=== PATIENT | male | born 1965 | race Caucasian/White ===

== ENCOUNTER 2016-09-18 20:41 | Inpatient (IN) | payer MEDICARE ==
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
[2016-09-18] MEDS ORDERED: SODIUM CHLORIDE 0.9% 1,000 ML IV STA (22:00)
[2016-09-18] MEDS ORDERED: SODIUM CHLORIDE 0.9% 500 ML IV STA (22:00)
[2016-09-18] MEDS ORDERED: HYDROmorphone 1 MG/ML 1 ML SYRINGE IVP STA ×2 (22:01→23:33)
--- NOTE | 2016-09-18 22:26 | XR ---
EXAMINATION TYPE: XR chest 2V DATE OF EXAM: 09/18/2016 10:15 PM COMPARISON: NONE HISTORY: Difficulty breathing. Cough and congestion TECHNIQUE: Frontal and lateral views of the chest are obtained. FINDINGS: Heart and mediastinum are normal. There is coarse interstitial density in both lungs. I se e no pleural effusion. There are no hilar masses. IMPRESSION: Coarse interstitial pulmonary density is nonspecific and could relate to fibrosis or int erstitial pneumonia. No gross heart failure.
[2016-09-18 22:40] LABS: Basophils % (A) 0 %; CH 30.4; CHCM 35.2; Eosinophils # (A) 0.2 k/uL (0-0.7); Eosinophils % (A) 3 %; HCT 40.9 % (39.0-53.0); HDW 3.17; HGB 13.5 gm/dL (13.0-17.5); Luc # (Auto) 0.08; Luc % (Auto) 1; Lymphocytes # (A) 0.9 k/uL (1.0-4.8); Lymphocytes % (A) 14 %; MCH 28.7 pg (25.0-35.0); MCHC 33.1 g/dL (31.0-37.0); MCV 86.9 fL (80.0-100.0); Mean Platelet Volume 8.2; Monocytes # (A) 0.2 k/uL (0-1.0); Monocytes % (A) 4 %; Neutrophils # (A) 4.8 k/uL (1.3-7.7); Neutrophils % (A) 78 %; RDW 13.7 % (11.5-15.5); WBC 6.2 k/uL (3.8-10.6); WBC (Perox) 6.07
[2016-09-18 22:50] LABS: ALT 35 U/L (21-72); AST 20 U/L (17-59); Alkaline Phosphatase 109 U/L (38-126); Anion Gap 11 mmol/L; Blood Urea Nitrogen 10 mg/dL (9-20); Calcium 9.3 mg/dL (8.4-10.2); Carbon Dioxide 26 mmol/L (22-30); Chloride 106 mmol/L (98-107); Glucose 238 mg/dL (74-99); Non-African American GFR(MDRD) >60 (>60 ml/min/1.73 sqM); Potassium 4.1 mmol/L (3.5-5.1); Sodium 143 mmol/L (137-145); Total Bilirubin 0.9 mg/dL (0.2-1.3); Total Protein 6.4 g/dL (6.3-8.2)
[2016-09-18] MEDS ORDERED: LEVOFLOXACIN 500MG-D5W PMX 500 MG in DEXTROSE/WATER 1 100ML.BAG IVPB STA (23:33)
[2016-09-18] MEDS ORDERED: ACETAMINOPHEN TAB 325 MG TAB PO PRN (23:36)
[2016-09-18] MEDS ORDERED: NALOXONE 0.4 MG/ML 1 ML VIAL IV PRN (23:36)
[2016-09-19 00:42] VITALS: BMI 34.5
[2016-09-19] MEDS: SODIUM CHLORIDE 0.9% 1,000 ML IV SCH (01:57)
[2016-09-19] MEDS: HYDROmorphone 1 MG/ML 1 ML SYRINGE IV PRN ×7 (03:13→22:01)
[2016-09-19 07:11] LABS: Glucose,Whole Blood 133 mg/dL (75-99)
[2016-09-19] MEDS ORDERED: glipiZIDE 10 MG TAB PO SCH (07:30)
[2016-09-19] MEDS: metFORMIN 500 MG TAB PO SCH ×2 (07:37→17:25)
[2016-09-19] MEDS: FAMOTIDINE 20 MG TAB PO SCH ×2 (07:37→21:05)
[2016-09-19] MEDS: INSULIN LISPRO (humaLOG) 300 UNIT/3 ML VIAL SQ SCH ×4 (08:03→21:06)
[2016-09-19 11:20] LABS: Glucose,Whole Blood 103 mg/dL (75-99)
[2016-09-19 11:33] LABS: Hemoglobin A1C 7.2 % (4.2-6.1)
[2016-09-19] MEDS ORDERED: OSELTAMIVIR 75 MG CAP PO SCH (13:15)
[2016-09-19 16:04] LABS: Glucose,Whole Blood 122 mg/dL (75-99)
[2016-09-19] MEDS ORDERED: TEMAZEPAM 15 MG CAP PO PRN (17:10)
[2016-09-19] MEDS ORDERED: HYDROcodone/APAP 5-325MG 1 EACH TAB PO PRN (17:10)
[2016-09-19] MEDS ORDERED: ALPRAZolam 0.25 MG TAB PO PRN (17:10)
[2016-09-19] MEDS: glipiZIDE 10 MG TAB PO SCH (17:25)
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
[2016-09-19] MEDS ORDERED: RX INFO: IV CONTRAST WAS GIVEN 1 EACH MISC MISCELLANE PRN (18:08)
[2016-09-19 18:43] LABS: Appearance,Urine Clear (Clear); Bilirubin,Urine Negative (Negative); Glucose,Urine (UA) Negative (Negative); Ketones,Urine Negative (Negative); Leukocyte Esterase,Urine Negative (Negative); Nitrite,Urine Negative (Negative); PH, Urine 5.5 (5.0-8.0); Protein,Urine Negative (Negative); Specific Gravity,Urine 1.014 (1.001-1.035); UA Billing (MACRO vs. MICRO) CHEM; Urobilinogen,Urine <2.0 mg/dL (<2.0)
[2016-09-19] MEDS: LEVALBUTEROL NEB (CONC) 1.25 MG/0.5 ML AMP INHALATION SCH (19:07)
[2016-09-19] MEDS: SYMBICORT 160-4.5 MCG INHALER INHALATION SCH (19:07)
[2016-09-19] MEDS: IPRATROPIUM 0.5 MG/2.5 ML NEBU INHALATION SCH (19:07)
--- NOTE | 2016-09-19 19:45 | HP ---
DATE OF ADMISSION: 09/18/2016 DATE OF SERVICE: 09/19/2016 This 51-year-old gentleman who was admitted with diabetes mellitus, hyperlipidemia, history of back pain, DJD, history of MRSA, total knee arthroplasty, is being followed by no family physician in the outpatient setting recently. He came to [facility] from [place]. The patient is complaining of shortness of breath and cough and tiredness and weakness. Patient [facility] and was admitted for further evaluation. Bilateral pneumonia was suspected. Interstitial edema was also suspected. Apparently multiple of the family were also sick. The patient did not take a flu shot this year. PAST MEDICAL HISTORY: 1. History of diabetes mellitus. 2. Hyperlipidemia. 3. History of back pain. 4. History of MRSA. 5. History of total knee arthroplasty. 6. History of THC. HOME MEDICATIONS: 1. Oxycodone 30 mg q.4 p.r.n. 2. Metformin 1000 mg b.i.d. 3. Glucotrol XL 10 mg b.i.d. 4. Flomax 0.4 daily. 5. Phenergan 25 mg. 6. MS Contin 60 and 30 mg b.i.d. 7. Valium 10 mg t.i.d. 8. Cymbalta 60 mg p.o. daily. 9. Lipitor 40 mg at bedtime. ALLERGIES: NONE. FAMILY HISTORY: No history of heart disease or strokes in the family. SOCIAL HISTORY: History of alcohol, THC. No history of smoking. REVIEW OF SYSTEMS: ENT: No dimension vision. No diminished hearing. CARDIOVASCULAR: No angina, palpitations. RESPIRATORY SYSTEM: As mentioned earlier. GI: No nausea, vomiting. : No dysuria. NERVOUS SYSTEM: No numbness or weakness. ALLERGY/IMMUNOLOGY: No asthma, hayfever. MUSCULOSKELETAL: As mentioned earlier. HEMATOLOGY/ONCOLOGY: No history of anemia. ENDOCRINE: Diabetes. CONSTITUTIONAL: As mentioned earlier. DERMATOLOGY: Negative. PSYCHIATRY: As mentioned earlier. PHYSICAL EXAMINATION: Patient alert and oriented x3. Pulse 84, blood pressure 105/73, respiration 18, temperature 97.2, pulse ox 94% on 2 L. HEENT: Conjunctivae normal. Oral mucosa moist. NECK: No jugular venous distention. No carotid bruit. No lymph node enlargement. CARDIOVASCULAR SYSTEM: S1 normal. S2 normal. No S3. No S4. RESPIRATORY SYSTEM: Breath sounds diminished at the bases. Bilateral scattered rhonchi and expiratory wheezing and crackles. ABDOMEN: Soft, obese, nontender. No mass palpable. LEGS: No edema. No swelling. NERVOUS SYSTEM: Higher functions as mentioned earlier. Cranial nerves 2 through 12 grossly intact. Moves all 4 limbs. No focal motor or sensory deficit. LYMPHATICS: No lymph node palpable in neck, axillae or groin. SKIN: No ulcer, rash, bleeding. LABS: Accu-Cheks 238. WBC 6.2. Hemoglobin A1C 7.2. ASSESSMENT: 1. Acute bilateral pneumonia, possible interstitial pneumonia. 2. Possible acute influenza. 3. Reactive bronchospasm. 4. Diabetes mellitus, type 2. 5. Hyperlipidemia. 6. History of back pain. 7. History of nephrolithiasis. 8. History of methicillin-resistant Staphylococcus aureus. 9. History of left total knee arthroplasty. 10. History of degenerative joint disease. 11. History of tetrahydrocannabinol. 12. FULL CODE. 13. Obesity with a body mass index of 34.6. RECOMMENDATIONS AND DISCUSSION: In this 51-year-old gentleman who presented with multiple complex medical issues, we will monitor the patient closely, continue the current medications, continue with symptomatic treatment. Will initiate broad-spectrum IV antibiotics. Will also obtain cultures, including sputum culture. Would also recommend bronchodilator treatment, DVT prophylaxis. Resume the home medications. Monitor blood sugars closely. Hemoglobin A1c is slightly elevated. Will also get Dr. Erickson to consult. Will also initiate Tamiflu empirically and will check nasal swab for flu testing also. Overall prognosis is guarded because of multiple complex medical issues. Further recommendations to follow. I would also recommend that the patient follow up with a primary physician closely after discharge. WADE
[2016-09-19] MEDS ORDERED: ATORVASTATIN 10 MG TAB PO SCH (21:00)
[2016-09-19] MEDS: methylPREDNISolone SOD SUCCI 125 MG/2 ML VIAL IV SCH (21:03)
[2016-09-19] MEDS: DULoxetine HCL 60 MG CAPSULE.DR PO SCH (21:04)
[2016-09-19] MEDS: ATORVASTATIN 40 MG TAB PO SCH (21:05)
[2016-09-19] MEDS: HEPARIN SODIUM,PORCINE 5,000 UNIT/ML 1 ML VIAL SQ SCH (21:05)
[2016-09-19] MEDS: MORPHINE SULFATE ER 60 MG TABLET PO SCH (21:06)
[2016-09-19] MEDS: MORPHINE SULFATE ER 30 MG TABLET PO SCH (21:07)
[2016-09-19] MEDS: LEVOFLOXACIN 500MG-D5W PMX 500 MG in DEXTROSE/WATER 1 100ML.BAG IVPB SCH (21:08)
[2016-09-19] MEDS: DIAZEPAM 5 MG TAB PO SCH (21:08)
[2016-09-19] MEDS: SULFAMETHOX-TMP 800-160MG 1 EACH TAB PO SCH (21:08)
[2016-09-19 21:19] LABS: Glucose,Whole Blood 147 mg/dL (75-99)
--- NOTE | 2016-09-19 22:20 | CT ---
EXAMINATION TYPE: CT chest w con DATE OF EXAM: 09/19/2016 9:39 PM COMPARISON: 09/18/2016 chest radiograph HISTORY: Cough and dyspnea. ILD versus pneumonia. CT DLP: 489.00 mGycm Automated exposure control for dose reduction was used. CONTRAST: CT scan of the chest is performed with IV Contrast, patient injected with 100 mL of Omnipaque 300. FINDINGS: LUNGS: There is evidence of faint airspace opacities in the perihilar areas bilaterally and is suggestion of mild perihilar pulmonary edema. Underlying interstitial chronic disease changes cannot be excluded. Mild central bronchiectasis is noted. There is evidence of mild active infiltrates and atelectasis in both lung bases more on the left side . No pneumothorax is noted. MEDIASTINUM: Heart is not enlarged. There are multiple lymph nodes in the mediastinum and hilar areas. One of the largest lymph nodes mervin suring 1.6 x 1.9 cm in the subcarinal area. The right hilar lymph node measures 1.7 x 1.0 cm. Visualized main pulmonary arteries and central branches reveals no significant filling defect to repr esent acute pulmonary embolism. The ascending aorta measures 3.4 cm in greatest AP diameter without s ignificant aneurysm. OTHER: Cholecystectomy changes are noted. Visualized adrenal glands appear unremarkable. Mild degenerative changes are present in the thoracic spine. IMPRESSION: 1. Mild bibasilar active lung infiltrates more on the left side posteriorly. 2. Perihilar interstitial opacities bilaterally are probably related to pulmonary edema. However poss ibility of chronic interstitial lung disease changes cannot be excluded. Short-term progress studies may be helpful.
[2016-09-20] MEDS: methylPREDNISolone SOD SUCCI 125 MG/2 ML VIAL IV SCH ×5 (00:05→23:38)
[2016-09-20] MEDS: HYDROmorphone 1 MG/ML 1 ML SYRINGE IV PRN ×6 (01:16→21:29)
[2016-09-20] MEDS: SODIUM CHLORIDE 0.9% 1,000 ML IV SCH ×2 (03:24→20:10)
[2016-09-20 06:48] LABS: Glucose,Whole Blood 257 mg/dL (75-99)
[2016-09-20] MEDS: LEVALBUTEROL NEB (CONC) 1.25 MG/0.5 ML AMP INHALATION SCH ×4 (07:12→20:14)
[2016-09-20] MEDS: IPRATROPIUM 0.5 MG/2.5 ML NEBU INHALATION SCH ×4 (07:12→20:14)
[2016-09-20] MEDS: SYMBICORT 160-4.5 MCG INHALER INHALATION SCH ×2 (07:13→20:13)
[2016-09-20 07:51] LABS: Basophils % (A) 0 %; CH 29.6; Eosinophils % (A) 0 %; HCT 37.6 % (39.0-53.0); Luc # (Auto) 0.05; Luc % (Auto) 1; Lymphocytes # (A) 0.5 k/uL (1.0-4.8); Lymphocytes % (A) 10 %; MCH 28.7 pg (25.0-35.0); MCHC 31.9 g/dL (31.0-37.0); MCV 90.1 fL (80.0-100.0); Mean Platelet Volume 7.1; Monocytes # (A) 0.1 k/uL (0-1.0); Monocytes % (A) 1 %; Neutrophils % (A) 87 %; RBC 4.17 m/uL (4.30-5.90); RDW 13.6 % (11.5-15.5); WBC 4.6 k/uL (3.8-10.6); WBC (Perox) 4.99
[2016-09-20] MEDS: MORPHINE SULFATE ER 30 MG TABLET PO SCH ×2 (08:04→20:11)
[2016-09-20] MEDS: MORPHINE SULFATE ER 60 MG TABLET PO SCH ×2 (08:06→20:11)
[2016-09-20] MEDS: glipiZIDE 10 MG TAB PO SCH ×2 (08:06→17:37)
[2016-09-20] MEDS: DULoxetine HCL 60 MG CAPSULE.DR PO SCH ×2 (08:07→20:10)
[2016-09-20] MEDS: TAMSULOSIN 0.4 MG CAP.ER.24H PO SCH (08:07)
[2016-09-20] MEDS: DIAZEPAM 5 MG TAB PO SCH ×3 (08:07→20:11)
[2016-09-20] MEDS: metFORMIN 500 MG TAB PO SCH ×2 (08:07→17:36)
[2016-09-20] MEDS: PANTOPRAZOLE 40 MG TABLET PO SCH (08:07)
[2016-09-20] MEDS: SULFAMETHOX-TMP 800-160MG 1 EACH TAB PO SCH ×2 (08:08→20:10)
[2016-09-20] MEDS: FAMOTIDINE 20 MG TAB PO SCH (08:08)
[2016-09-20] MEDS: INSULIN LISPRO (humaLOG) 300 UNIT/3 ML VIAL SQ SCH ×4 (08:10→20:17)
[2016-09-20 08:12] LABS: Anion Gap 12 mmol/L; Blood Urea Nitrogen 12 mg/dL (9-20); Calcium 8.8 mg/dL (8.4-10.2); Carbon Dioxide 21 mmol/L (22-30); Chloride 107 mmol/L (98-107); Glucose 242 mg/dL (74-99); Non-African American GFR(MDRD) >60 (>60 ml/min/1.73 sqM); Potassium 4.2 mmol/L (3.5-5.1); Sodium 140 mmol/L (137-145)
[2016-09-20] MEDS: HEPARIN SODIUM,PORCINE 5,000 UNIT/ML 1 ML VIAL SQ SCH ×2 (09:54→20:12)
[2016-09-20 11:24] LABS: Glucose,Whole Blood 269 mg/dL (75-99)
[2016-09-20 17:04] LABS: Glucose,Whole Blood 236 mg/dL (75-99)
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
[2016-09-20] MEDS: ATORVASTATIN 40 MG TAB PO SCH (20:11)
[2016-09-20] MEDS: LEVOFLOXACIN 500MG-D5W PMX 500 MG in DEXTROSE/WATER 1 100ML.BAG IVPB SCH (20:11)
[2016-09-20 20:35] LABS: Glucose,Whole Blood 220 mg/dL (75-99)
[2016-09-21] MEDS: HYDROmorphone 1 MG/ML 1 ML SYRINGE IV PRN ×8 (01:16→23:56)
[2016-09-21] MEDS: methylPREDNISolone SOD SUCCI 125 MG/2 ML VIAL IV SCH ×4 (05:03→23:18)
[2016-09-21 07:06] LABS: Glucose,Whole Blood 225 mg/dL (75-99)
[2016-09-21 07:18] LABS: Basophils % (A) 0 %; CH 29.8; CHCM 33.4; Eosinophils % (A) 0 %; HCT 34.2 % (39.0-53.0); HGB 11.1 gm/dL (13.0-17.5); Luc # (Auto) 0.06; Luc % (Auto) 1; Lymphocytes # (A) 0.6 k/uL (1.0-4.8); Lymphocytes % (A) 6 %; MCH 28.9 pg (25.0-35.0); MCHC 32.4 g/dL (31.0-37.0); MCV 89.4 fL (80.0-100.0); Mean Platelet Volume 7.3; Monocytes # (A) 0.2 k/uL (0-1.0); Monocytes % (A) 2 %; Neutrophils # (A) 9.4 k/uL (1.3-7.7); Neutrophils % (A) 92 %; RBC 3.83 m/uL (4.30-5.90); WBC 10.2 k/uL (3.8-10.6); WBC (Perox) 11.47
[2016-09-21 07:32] LABS: Anion Gap 11 mmol/L; Blood Urea Nitrogen 13 mg/dL (9-20); Carbon Dioxide 22 mmol/L (22-30); Chloride 106 mmol/L (98-107); Glucose 212 mg/dL (74-99); Non-African American GFR(MDRD) >60 (>60 ml/min/1.73 sqM); Potassium 4.8 mmol/L (3.5-5.1); Sodium 139 mmol/L (137-145)
[2016-09-21] MEDS: PANTOPRAZOLE 40 MG TABLET PO SCH (08:06)
[2016-09-21] MEDS: glipiZIDE 10 MG TAB PO SCH ×2 (08:06→17:52)
[2016-09-21] MEDS: INSULIN LISPRO (humaLOG) 300 UNIT/3 ML VIAL SQ SCH ×4 (08:06→20:34)
[2016-09-21] MEDS: TAMSULOSIN 0.4 MG CAP.ER.24H PO SCH (08:08)
[2016-09-21] MEDS: DULoxetine HCL 60 MG CAPSULE.DR PO SCH ×2 (08:08→20:25)
[2016-09-21] MEDS: SULFAMETHOX-TMP 800-160MG 1 EACH TAB PO SCH ×2 (08:08→20:25)
[2016-09-21] MEDS: metFORMIN 500 MG TAB PO SCH ×2 (08:08→17:52)
[2016-09-21] MEDS: HEPARIN SODIUM,PORCINE 5,000 UNIT/ML 1 ML VIAL SQ SCH ×2 (08:17→20:25)
--- NOTE | 2016-09-21 08:50 | PN ---
DATE OF SERVICE: 09/20/2016 This is a 51-year-old gentleman who was admitted with acute bilateral pneumonia, also had possible acute influenza. The patient will be closely monitored at this time. The patient has significant shortness of breath. A chest CT was done with Dr. Erickson, showed multiple lymph nodes in the mediastinum and as well as previous infiltrate and he had perihilar interstitial opacities but without any evidence of PE. As mentioned earlier the hemoglobin is 12. Blood sugar was elevated at this time. PAST MEDICAL HISTORY: Reviewed. REVIEW OF SYSTEMS: CARDIOVASCULAR: No angina or palpitation. RESPIRATORY: As mentioned earlier. GI: No nausea. : No dysuria. NERVOUS SYSTEMS: As mentioned earlier. Current medications are reviewed and include Tylenol 650 p.r.n., [place] 5 mg, DuoNeb q.i.d. and p.r.n., Xanax 0.5 t.i.d., Lipitor 40 mg, Symbicort 160/4.5 two puffs b.i.d., Cymbalta, Glucotrol 10 mg a.c. b.i.d., heparin 5000 subQ b.i.d., Dilaudid, Humalog, Atrovent nebulizer, Xopenex, Levaquin 500 mg IV daily, Glucophage 5000 mg a.c. b.i.d., Solu-Medrol 60 mg IV q.6, MS Contin, Narcan, OxyIR, Flomax, Restoril, Bactrim DS. PHYSICAL EXAM: Patient is alert and oriented x3, pulse 95, blood pressure 107/65, respirations 16, temperature 98 degrees, pulse ox 96% on 3 L. HEENT: Conjunctivae normal. NECK: No jugular venous distension. CARDIOVASCULAR SYSTEM: S1, S2, muffled. RESPIRATORY: Breath sounds diminished at the bases, bilateral scattered rhonchi, no crackles. Expiratory wheezing also present. Abdomen is soft, nontender. EXTREMITIES: Legs no edema, no swelling. NERVOUS SYSTEM: No focal deficits. LABS: WBC is 4.6, hemoglobin is 12 and glucose is 220. ASSESSMENT: 1. Acute bilateral pneumonia, possibly aspiration pneumonia. 2. Possible acute influenza. 3. Reactive bronchospasm. 4. Diabetes mellitus type 2. 5. Hyperlipidemia. 6. History of back pain. 7. History of nephrolithiasis. 8. History of methicillin resistant Staphylococcus aureus. 9. History of left total knee arthroplasty with a past history of degenerative joint disease. 10. History of THC. 11. Obesity with a body mass index of 34.6. 12. FULL CODE. RECOMMENDATION: In this 51-year-old gentleman who presented with multiple complex medical issues, will monitor the patient closely. Continue with the current medication and bronchodilators. Continue with the symptomatic treatment. Otherwise, closely follow with Dr. Erickson and bronchodilators. Prognosis guarded because of multiple complex medical issues. Further recommendations to follow. See orders for details. The cultures are negative so far.
[2016-09-21] MEDS: IPRATROPIUM-ALBUTEROL 3 ML NEB INHALATION SCH ×4 (09:00→19:53)
[2016-09-21] MEDS: SYMBICORT 160-4.5 MCG INHALER INHALATION SCH ×2 (09:00→19:53)
[2016-09-21] MEDS: MORPHINE SULFATE ER 30 MG TABLET PO SCH ×2 (09:16→20:25)
[2016-09-21] MEDS: MORPHINE SULFATE ER 60 MG TABLET PO SCH ×2 (09:17→20:26)
[2016-09-21] MEDS: DIAZEPAM 5 MG TAB PO SCH ×3 (09:18→21:29)
[2016-09-21] MEDS: SODIUM CHLORIDE 0.9% 1,000 ML IV SCH (10:42)
[2016-09-21 11:11] LABS: Glucose,Whole Blood 224 mg/dL (75-99)
[2016-09-21 16:17] LABS: Glucose,Whole Blood 225 mg/dL (75-99)
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
--- NOTE | 2016-09-21 18:28 | PN ---
DATE OF SERVICE: 09/21/2016 This 51-year-old gentleman who was admitted with acute bilateral pneumonia, possibly aspiration pneumonia, is being closely monitored. The patient also had significant bronchospasm after bronchodilators. Patient is improving significantly. No chest pain. No palpitation. No fever. On exam, alert and oriented x3. Pulse is 94. Blood pressure is 117/64, respiration 18, temperature 97.4, pulse ox 92% on room air. HEENT: Conjunctivae normal. NECK: No jugular venous distention. CARDIOVASCULAR SYSTEM: S1, S2 muffled. RESPIRATORY SYSTEM: Breath sounds diminished at the bases. A few scattered rhonchi and crackles. Expiratory wheezing also present. ABDOMEN: Soft, nontender. LEGS: No edema. No swelling. NERVOUS SYSTEM: No focal deficit. LABS: WBC 7.1 Accu-Cheks 212. ASSESSMENT: 1. Acute bilateral pneumonia, possibly aspiration pneumonia. 2. Rule out acute influenza. 3. Reactive bronchospasm. 4. Diabetes mellitus, type 2. 5. Hyperlipidemia. 6. History of back pain. 7. History of nephrolithiasis. 8. History of methicillin-resistant Staphylococcus aureus. 9. History of left total knee arthroplasty with a past history of degenerative joint disease. 10. History of tetrahydrocannabinol. 11. Obesity; body mass index of 34.6. 12. FULL CODE. RECOMMENDATIONS AND DISCUSSION: I recommend to continue with the current medications, continue with the monitoring, symptomatic treatment. Otherwise, at this time I would recommend continuing the IV steroids. Closely follow with Dr. Erickson. Guarded prognosis because of multiple complex medical issues. Further recommendations to follow. DAVIDD
[2016-09-21] MEDS: ATORVASTATIN 40 MG TAB PO SCH (20:25)
[2016-09-21] MEDS: LEVOFLOXACIN 500 MG TAB PO SCH (20:26)
[2016-09-21 20:54] LABS: Glucose,Whole Blood 233 mg/dL (75-99)
[2016-09-22] MEDS: HYDROmorphone 1 MG/ML 1 ML SYRINGE IV PRN ×5 (03:11→21:26)
[2016-09-22] MEDS: methylPREDNISolone SOD SUCCI 125 MG/2 ML VIAL IV SCH ×2 (05:09→11:11)
[2016-09-22 07:36] LABS: Glucose,Whole Blood 214 mg/dL (75-99)
[2016-09-22 08:30] LABS: Anion Gap 12 mmol/L; Blood Urea Nitrogen 15 mg/dL (9-20); Calcium 9.5 mg/dL (8.4-10.2); Carbon Dioxide 25 mmol/L (22-30); Chloride 104 mmol/L (98-107); Glucose 187 mg/dL (74-99); Non-African American GFR(MDRD) >60 (>60 ml/min/1.73 sqM); Potassium 4.8 mmol/L (3.5-5.1); Sodium 141 mmol/L (137-145)
[2016-09-22] MEDS: metFORMIN 500 MG TAB PO SCH ×2 (09:00→16:47)
[2016-09-22] MEDS: PANTOPRAZOLE 40 MG TABLET PO SCH (09:00)
[2016-09-22] MEDS: glipiZIDE 10 MG TAB PO SCH ×2 (09:00→16:47)
[2016-09-22 09:01] LABS: Basophils % (A) 0 %; CH 29.7; CHCM 33.3; Eosinophils % (A) 0 %; HDW 3.02; HGB 11.8 gm/dL (13.0-17.5); Luc # (Auto) 0.05; Luc % (Auto) 1; Lymphocytes # (A) 0.7 k/uL (1.0-4.8); Lymphocytes % (A) 7 %; MCH 29.3 pg (25.0-35.0); MCHC 32.7 g/dL (31.0-37.0); MCV 89.6 fL (80.0-100.0); Mean Platelet Volume 7.8; Monocytes # (A) 0.3 k/uL (0-1.0); Monocytes % (A) 3 %; Neutrophils # (A) 8.3 k/uL (1.3-7.7); Neutrophils % (A) 89 %; RBC 4.02 m/uL (4.30-5.90); WBC 9.3 k/uL (3.8-10.6); WBC (Perox) 9.58
[2016-09-22] MEDS: SULFAMETHOX-TMP 800-160MG 1 EACH TAB PO SCH ×2 (09:01→21:26)
[2016-09-22] MEDS: HEPARIN SODIUM,PORCINE 5,000 UNIT/ML 1 ML VIAL SQ SCH ×2 (09:01→21:29)
[2016-09-22] MEDS: DULoxetine HCL 60 MG CAPSULE.DR PO SCH ×2 (09:01→21:26)
[2016-09-22] MEDS: TAMSULOSIN 0.4 MG CAP.ER.24H PO SCH (09:01)
[2016-09-22] MEDS: INSULIN LISPRO (humaLOG) 300 UNIT/3 ML VIAL SQ SCH ×4 (09:01→21:39)
[2016-09-22] MEDS: MORPHINE SULFATE ER 30 MG TABLET PO SCH ×2 (09:14→21:23)
[2016-09-22] MEDS: MORPHINE SULFATE ER 60 MG TABLET PO SCH ×2 (09:14→21:25)
[2016-09-22] MEDS: DIAZEPAM 5 MG TAB PO SCH ×3 (09:14→21:22)
[2016-09-22] MEDS: IPRATROPIUM-ALBUTEROL 3 ML NEB INHALATION SCH ×4 (09:22→19:36)
[2016-09-22] MEDS: SYMBICORT 160-4.5 MCG INHALER INHALATION SCH ×2 (09:23→19:36)
[2016-09-22 11:47] LABS: Glucose,Whole Blood 276 mg/dL (75-99)
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
[2016-09-22] MEDS: methylPREDNISolone SOD SUCCI 40 MG/ML 1 ML VIAL IV SCH (16:47)
[2016-09-22 16:49] LABS: Glucose,Whole Blood 215 mg/dL (75-99)
--- NOTE | 2016-09-22 18:24 | PN ---
DATE OF SERVICE: 09/22/2016 This 51-year-old gentleman admitted with acute bilateral pneumonia, possibly aspiration pneumonia, also had significant bronchospasm. The patient improved significantly. Patient also had chronic pain syndrome. The patient has a pain management consult in the near future. CT scan showed bibasilar infiltrates and perihilar opacities. No chest pain or palpitations. No fever. On exam, alert, oriented x3. Pulse is 94, blood pressure 120/70, respirations 16, temperature 97.4, pulse ox 94% on 1.5 liters. HEENT: Conjunctivae normal. NECK: Supple. CARDIOVASCULAR: S1 and S2 muffled. LUNGS: Breath sounds are diminished at the bases. Bilateral scattered rhonchi and crackles. ABDOMEN: Soft, nontender. No masses. EXTREMITIES: Legs no edema. NERVOUS SYSTEM: No focal deficits. LABS: WBC 9.3, hemoglobin 11.8. ASSESSMENT: 1. Acute bilateral pneumonia, possibly aspiration pneumonia. 2. Rule out acute influenza. 3. Reactive bronchospasm. 4. Diabetes mellitus type 2. 5. Hyperlipidemia. 6. History of back pain. 7. History of nephrolithiasis. 8. History of MRSA. 9. History of left total knee arthroplasty with past history of degenerative joint disease. 10. History of THC. 11. Obesity, body mass index of 34.6. 12. FULL CODE. RECOMMENDATIONS: Continue current medications, continue with monitoring and symptomatic treatment. Otherwise at this time, continue the bronchodilators and continue antibiotics. Continue the rest of the medications. Closely follow with orthopedic surgery. Further recommendations to follow. Follow with pulmonary.
[2016-09-22] MEDS: ATORVASTATIN 40 MG TAB PO SCH (21:25)
[2016-09-22] MEDS: LEVOFLOXACIN 500 MG TAB PO SCH (21:26)
[2016-09-22 22:01] LABS: Glucose,Whole Blood 198 mg/dL (75-99)
[2016-09-23] MEDS: methylPREDNISolone SOD SUCCI 40 MG/ML 1 ML VIAL IV SCH ×2 (00:18→08:52)
[2016-09-23] MEDS: HYDROmorphone 1 MG/ML 1 ML SYRINGE IV PRN ×4 (00:18→14:14)
[2016-09-23] MEDS: SODIUM CHLORIDE 0.9% 1,000 ML IV SCH (02:15)
[2016-09-23 07:10] LABS: Basophils % (A) 0 %; CH 29.7; CHCM 33.2; Eosinophils % (A) 0 %; HCT 35.9 % (39.0-53.0); HGB 11.7 gm/dL (13.0-17.5); Luc # (Auto) 0.04; Luc % (Auto) 1; Lymphocytes # (A) 0.7 k/uL (1.0-4.8); Lymphocytes % (A) 10 %; MCH 29.3 pg (25.0-35.0); MCHC 32.7 g/dL (31.0-37.0); MCV 89.7 fL (80.0-100.0); Mean Platelet Volume 7.1; Monocytes # (A) 0.3 k/uL (0-1.0); Monocytes % (A) 4 %; Neutrophils # (A) 5.9 k/uL (1.3-7.7); Neutrophils % (A) 85 %; WBC (Perox) 7.36
[2016-09-23 07:25] LABS: Anion Gap 10 mmol/L; Blood Urea Nitrogen 16 mg/dL (9-20); Calcium 9.5 mg/dL (8.4-10.2); Carbon Dioxide 28 mmol/L (22-30); Chloride 101 mmol/L (98-107); Glucose 207 mg/dL (74-99); Non-African American GFR(MDRD) >60 (>60 ml/min/1.73 sqM); Potassium 4.8 mmol/L (3.5-5.1); Sodium 139 mmol/L (137-145)
[2016-09-23 07:30] LABS: Glucose,Whole Blood 213 mg/dL (75-99)
[2016-09-23] MEDS: SYMBICORT 160-4.5 MCG INHALER INHALATION SCH (07:37)
[2016-09-23] MEDS: IPRATROPIUM-ALBUTEROL 3 ML NEB INHALATION SCH ×3 (07:37→16:04)
[2016-09-23 08:47] VITALS: BP 134/85; RESP 16; TEMP 98.3
[2016-09-23] MEDS: INSULIN LISPRO (humaLOG) 300 UNIT/3 ML VIAL SQ SCH ×2 (08:51→13:03)
[2016-09-23] MEDS: glipiZIDE 10 MG TAB PO SCH (08:51)
[2016-09-23] MEDS: PANTOPRAZOLE 40 MG TABLET PO SCH (08:52)
[2016-09-23] MEDS: metFORMIN 500 MG TAB PO SCH (08:52)
[2016-09-23] MEDS: MORPHINE SULFATE ER 30 MG TABLET PO SCH (08:53)
[2016-09-23] MEDS: DULoxetine HCL 60 MG CAPSULE.DR PO SCH (08:53)
[2016-09-23] MEDS: HEPARIN SODIUM,PORCINE 5,000 UNIT/ML 1 ML VIAL SQ SCH (08:53)
[2016-09-23] MEDS: DIAZEPAM 5 MG TAB PO SCH (08:53)
[2016-09-23] MEDS: MORPHINE SULFATE ER 60 MG TABLET PO SCH (08:54)
[2016-09-23] MEDS: TAMSULOSIN 0.4 MG CAP.ER.24H PO SCH (08:54)
[2016-09-23] MEDS: SULFAMETHOX-TMP 800-160MG 1 EACH TAB PO SCH (08:55)
[2016-09-23 12:13] LABS: Glucose,Whole Blood 149 mg/dL (75-99)
[2016-09-23 17:04] VITALS: PULSE 67
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
--- NOTE | 2016-09-24 19:08 | DS ---
DATE OF ADMISSION: 09/18/2016 DATE OF DISCHARGE: 09/23/2016 FINAL DIAGNOSES: 1. Acute bilateral pneumonia, possibly aspiration pneumonia. 2. Reactive bronchospasm. 3. Diabetes mellitus type 2. 4. Hyperlipidemia. 5. History of back pain. 6. History of nephrolithiasis. 7. History of methicillin-resistant Staphylococcus aureus. 8. History of total knee arthroplasty with a past history of degenerative joint disease. 9. History of THC. 10. Obesity, body mass index 34.6. 11. Chronic pain syndrome. 12. FULL CODE. DISCHARGE DISPOSITION: Patient will be discharged in stable condition with guarded prognosis. HISTORY OF PRESENT ILLNESS: This 51-year-old gentleman with a past medical history of multiple medical problems admitted with acute bilateral pneumonia. The patient was treated with broad spectrum IV antibiotics. Patient improved significantly. Dr. Erickson saw the patient during the hospitalization. On examination, vital signs stable. CARDIOVASCULAR: S1, S2 muffled. Abdomen soft. CENTRAL NERVOUS SYSTEM: No focal deficits. Patient will be discharged in a stable condition. DISCHARGE ADVICE AND MEDICATIONS: 1. Diet is cardiac. 2. Activity limited until follow up. 3. Follow-up with Dr. Jauregui in 2 to 3 days. 4. Follow-up with Dr. Erickson as advised. 5. Ventolin HFA 1 to 2 puffs q.i.d. p.r.n. 6. Lipitor 40 mg q.h.s. 7. Symbicort 160/4.5, 2 puffs b.i.d. 8. Cymbalta 60 mg p.o. b.i.d. 9. Valium 10 mg p.o. t.i.d. 10. Levaquin 500 mg p.o. q.h.s. for 5 days. 11. MS Contin 90 mg p.o. b.i.d. 12. Phenergan 25 mg p.r.n. 13. Flomax 0.4 daily. 14. Glucotrol XL 10 mg b.i.d. 15. Metformin 1000 mg b.i.d. 16. Oxycodone 30 mg q.4 to 6 p.r.n. The patient is supposed to attend the pain management clinic on Monday next week and obtain pain prescriptions.
== END 2016-09-23 17:21 | disposition home or self-care (01) | DRG 179 ==
LOC: EC 20:41 → 3SUR 23:34
PROVIDERS: ADMIT Internal Medicine; ATTEND Internal Medicine
DX: J69.0 Pneumonitis due to inhalation of food and vomit (principal); E11.65 Type 2 diabetes mellitus with hyperglycemia; E78.5 Hyperlipidemia, unspecified; J20.9 Acute bronchitis, unspecified; M19.90 Unspecified osteoarthritis, unspecified site; Z86.010 Personal history of colon polyps; N40.0 Benign prostatic hyperplasia without lower urinary tract symptoms; F12.90 Cannabis use, unspecified, uncomplicated; G89.4 Chronic pain syndrome; M94.0 Chondrocostal junction syndrome [Tietze]; Z87.442 Personal history of urinary calculi; Z86.14 Personal history of Methicillin resistant Staphylococcus aureus infection; Z96.652 Presence of left artificial knee joint; Z79.84 Long term (current) use of oral hypoglycemic drugs; Z79.891 Long term (current) use of opiate analgesic; Z79.899 Other long term (current) drug therapy
CPT/HCPCS: 36415; 71020; 71260; 80048; 80053; 81003; 83036; 85025; 87040; 87070; 87205; 87502; 94640; 96365; 96375; 96376; 99285

== ENCOUNTER 2017-09-07 10:15 | Day surgery (SDC) | payer MEDICARE, OTHER ==
--- NOTE | 2017-09-07 11:07 | IR ---
PICC LINE PLACEMENT: HISTORY: Infection requiring long-term antibiotic therapy PROCEDURE: Ultrasound and fluoroscopic guidance of PICC line placement. COMPLICATIONS: None ANESTHESIA: 1. 1% Lidocaine locally. FINDINGS/TECHNIQUE: The procedure was explained to the patient. The risks, complications, benefits and alternatives were discussed and any questions were answered. Informed consent was obtained. The patient was placed supine on the fluoroscopic table and prepped and draped in the usual sterile [facility] ion. Utilizing a 21 gauge needle and sonographic and fluoroscopic guidance, access in the vein was achieved and there is placement of a 0.018 guidewire. The vein is patent. A 4-F sheath was placed o drew the guidewire. The guidewire and dilator were removed and a 4-F. PICC line was placed through th e sheath with the tip at the level of the SVC. The sheath was removed, the catheter was flushed and sutured into position. The patient was stable throughout the procedure and remained stable upon disc harge from the Department of Radiology. The vein puncture was patent under ultrasound. A ortiz scale image was obtained to document patency of the vein punctured. All elements of the maximal barrier technique were utilized. FLUOROSCOPY TIME: 0.3 minutes, one image submitted IMPRESSION: Successful PICC line placement under ultrasound and fluoroscopic guidance.
[2017-09-07 11:15] VITALS: BP 126/73; RESP 20
== END 2017-09-07 11:18 | disposition home or self-care (01) ==
LOC: CATHCVL 10:15
PROVIDERS: ATTEND Radiology Diagnostic Radiology
DX: T84.53XA Infection and inflammatory reaction due to internal right knee prosthesis, initial encounter (principal); E78.00 Pure hypercholesterolemia, unspecified; E11.9 Type 2 diabetes mellitus without complications; Z79.84 Long term (current) use of oral hypoglycemic drugs; F32.9 Major depressive disorder, single episode, unspecified; M19.90 Unspecified osteoarthritis, unspecified site; Z79.2 Long term (current) use of antibiotics; Z79.899 Other long term (current) drug therapy
CPT/HCPCS: 36569; 76937; 77001; C1751; C1769

== ENCOUNTER 2018-01-30 12:21 | Emergency (ER) | payer MEDICARE ==
[2018-01-30 12:45] VITALS: BP 131/76; PULSE 81; RESP 18; TEMP 98
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
[2018-01-30] MEDS ORDERED: DIAZEPAM 5 MG/ML 2 ML INJ IM STA (13:26)
--- NOTE | 2018-01-30 13:26 | XR ---
EXAMINATION TYPE: XR shoulder complete LT DATE OF EXAM: 01/30/2018 COMPARISON: NONE HISTORY: Pain TECHNIQUE: Three views are submitted. FINDINGS: The osseous structures are intact. There is no acute fracture or dislocation. The AC joint is narro wed with mild hypertrophic changes. IMPRESSION: 1. No acute process. Arthropathy of the AC joint.
== END 2018-01-30 13:37 | disposition home or self-care (01) ==
LOC: EC 12:21
DX: S46.812A Strain of other muscles, fascia and tendons at shoulder and upper arm level, left arm, initial encounter (principal); E11.9 Type 2 diabetes mellitus without complications; E78.5 Hyperlipidemia, unspecified; F32.9 Major depressive disorder, single episode, unspecified; Z86.14 Personal history of Methicillin resistant Staphylococcus aureus infection; Z96.651 Presence of right artificial knee joint; Z79.52 Long term (current) use of systemic steroids; Z79.84 Long term (current) use of oral hypoglycemic drugs; Z79.899 Other long term (current) drug therapy; X50.1XXA Overexertion from prolonged static or awkward postures, initial encounter
CPT/HCPCS: 73030; 99283; 96372; J3360

== ENCOUNTER 2018-09-06 15:48 | Emergency (ER) | payer MEDICARE ==
[2018-09-06 15:54] VITALS: BP 138/80; PULSE 84; RESP 18; TEMP 98
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
[2018-09-06] MEDS ORDERED: MORPHINE SULFATE 4 MG/ML SYRINGE IM STA (16:39)
[2018-09-06] MEDS ORDERED: KETOROLAC 60 MG/2 ML VIAL IM STA (16:39)
--- NOTE | 2018-09-06 16:44 | XR ---
EXAMINATION TYPE: XR shoulder complete LT DATE OF EXAM: 09/06/2018 COMPARISON: 01/30/2018 HISTORY: Left shoulder pain TECHNIQUE: 3 views FINDINGS: I see no fracture nor dislocation. Joint spaces are normal. Glenohumeral joint is intact. T here are no pathologic calcifications. IMPRESSION: Negative left shoulder exam. No change compared to old exam.
--- NOTE | 2018-09-06 16:51 | XR ---
EXAMINATION TYPE: XR humerus LT DATE OF EXAM: 09/06/2018 COMPARISON: NONE HISTORY: Shoulder pain TECHNIQUE: 4 views FINDINGS: I see no fracture nor dislocation. Glenohumeral joint is intact. There are no pathologic ca lcifications. Elbow joint appears intact. IMPRESSION: Negative left humerus exam.
== END 2018-09-06 17:10 | disposition home or self-care (01) ==
LOC: EC 15:48
DX: S43.402A Unspecified sprain of left shoulder joint, initial encounter (principal); E11.9 Type 2 diabetes mellitus without complications; E78.5 Hyperlipidemia, unspecified; F32.9 Major depressive disorder, single episode, unspecified; Z86.14 Personal history of Methicillin resistant Staphylococcus aureus infection; Z98.890 Other specified postprocedural states; Z79.84 Long term (current) use of oral hypoglycemic drugs; Z79.52 Long term (current) use of systemic steroids; Z79.899 Other long term (current) drug therapy; W00.1XXA Fall from stairs and steps due to ice and snow, initial encounter
CPT/HCPCS: 73030; 73060; 99283; 96372 ×2; J2270; J1885

== ENCOUNTER 2021-02-23 | Observation (INO) | payer MEDICARE | END 2021-02-24 15:38 | disposition home or self-care (01) | PROVIDERS: ADMIT Internal Medicine ==

== ENCOUNTER 2023-05-04 06:04 | Emergency (ER) | payer BC, MEDICARE ==
[2023-05-04] MEDS ORDERED: KETOROLAC 15 MG/ML 1 ML VIAL IM STA (06:33)
[2023-05-04] MEDS ORDERED: HYDROmorphone 1 MG/ML 1 ML SYRINGE IM STA (06:33)
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
--- NOTE | 2023-05-04 07:15 | XR ---
EXAMINATION TYPE: XR lumbosacral spine 5 views DATE OF EXAM: 05/04/2023 Comparison: None Clinical History: 58-year-old male pain Findings: Cholecystectomy clips. There is an oval 1.1 x 0.5 cm calcification located in the right paramedian mi d abdomen located somewhat medially. Additional left-sided renal calculi measuring 1.1 and 0.6 cm. No pars interarticularis defects seen. Moderate degenerative disc disease and endplate spondylosis es pecially made lumbar spine. Hypertrophic facet arthropathy mid to lower lumbar spine with a degenerat flavio grade 1 anterolisthesis L4-L5. Impression: 1. Moderate degenerative disc disease especially mid lumbar spine. 2. Hypertrophic facet arthropathy especially mid to lower lumbar spine. Degenerative grade 1 anteroli sthesis L4-L5. 3. No vertebral compression collapse. 4. Note bilateral nephrolithiasis. A 1.1 cm stone on the right is somewhat medial in position and may be about to pass. Correlate with symptoms.
[2023-05-04] MEDS ORDERED: ACET/COD 300 MG/30 MG STARTER PACK 6 TAB BTL PO STA (07:24)
[2023-05-04 15:55] VITALS: BP 130/89; PULSE 80; RESP 18; TEMP 97.8
== END 2023-05-04 07:45 | disposition home or self-care (01) ==
LOC: EC 06:04
DX: M54.16 Radiculopathy, lumbar region (principal); I25.10 Atherosclerotic heart disease of native coronary artery without angina pectoris; E11.9 Type 2 diabetes mellitus without complications; F12.90 Cannabis use, unspecified, uncomplicated; Z86.59 Personal history of other mental and behavioral disorders
CPT/HCPCS: 72110; 99283; 96372 ×2; J1170; J1885